=== PATIENT | male | born 1970 | race Caucasian/White ===

== ENCOUNTER 2017-11-17 16:27 | Emergency (ER) | payer OTHER ==
[~2017-11-17] VITALS: Ht 188 cm; Wt 146.0 kg
[~2017-11-17 16:27] MED LIST: GABA-1218 PO; HYDR10TA PO; IBUP-1428 PO; LISI-461 PO; OMEP20CA59 PO
[2017-11-17 16:32] VITALS: TEMP 37.1; Ht 188 cm; Wt 146.0 kg
[2017-11-17] MEDS ORDERED: ZOLP10TA PO (17:05)
[2017-11-17] MEDS ORDERED: HYDR-5806 PO (17:05)
[2017-11-17] MEDS ORDERED: KETOROLAC TROMETHAMINE 30 MG/ML VIAL IV STA (17:24)
[2017-11-17] MEDS ORDERED: ACETAMINOPHEN 500 MG TAB PO STA (17:24)
[2017-11-17] MEDS ORDERED: DEXAMETHASONE **PF** INJ 10 MG/ML VIAL IM ONE (17:30)
--- NOTE | 2017-11-17 17:32 | EMERGENCY ROOM VISIT NOTE ---
History Report prepared by Ana: Car Peña Under the Supervision of: Dr. Hima Degroot M.D. First contact with patient: 16:47 Chief Complaint: NEURO SYMPTOMS Stated Complaint: NUMBNESS IN LEGS WHEN STANDING,HEADACHES Nursing Triage Summary: Pt reports hx back problems seen at [facility]. Yesterday he fell twice, his legs just given out on him and he has no feeling in both legs. Today he fell 2 more times today. Left leg feels like it's asleep x 1 month, but if you touch it it feels like you are touching nerves. Right side he looses feeling in it and right lower back feels like he was hit with a baseball back. History of Present Illness The patient is a 47 year old white male with history of hypertension who presents to the Emergency Room with complaints of worsening numbness in his bilateral lower extremities that he has been experiencing since 09/01/2017, 1.5 months prior to arrival. The patient states that he has had numbness down the left leg since 09/01, which has worsened to numbness in the right leg over the past couple of days. He notes that when he is standing the right leg will go completely weak and cause him to fall to the ground. He has fallen 5 times in the last three days due to the right leg weakening. The patient also complains of lower back pain, which is mostly chronic in nature. He had a lower back x- ray three weeks ago which showed spinal stenosis and bulging disc. He denies any history of unexplained weight loss or cancer. He is on Vicodin daily for his chronic back pain. Source of History: patient Onset: 1.5 months [employer]ICE WORK[employer] Position: leg (bilateral) Quality: numbness Timing: worsening Review of Systems See HPI for pertinent positives and negatives. A total of ten systems were reviewed and were otherwise negative. Past Medical & Surgical Medical Problems: (1) Hypertension Hypertension Family History Cancer Diabetes mellitus Heart disease Hypertension Kidney disease Kidney stones Social History Smoking Status: Never Smoker Alcohol Use: none Drug Use: none Marital Status: Occupation Status: employed Current/Historical Medications Scheduled Lisinopril (Zestril), 10 MG PO BID Methylprednisolone (Medrol Dosepak), 1 PKT PO DAILY Zolpidem Tartrate (Ambien), 10 MG PO HS Scheduled PRN Hydrocodone-Acetaminophen (Hydrocodone Bitartrate/AC 10-325 mg), 1 TAB PO QID PRN for Pain Ibuprofen (Motrin), 800 MG PO Q8 PRN for Pain Allergies Coded Allergies: No Known Allergies (Unverified , 03/08/12) Physical Exam Vital Signs Date Time Temp Pulse Resp B/P (MAP) Pulse Ox O2 Delivery O2 Flow Rate FiO2 11/17/17 18:27 80 18 128/89 94 Room Air 11/17/17 16:58 93 11/17/17 16:32 37.1 94 16 149/93 96 Room Air Physical Exam GENERAL: Awake, alert, well-appearing, NAD HENT: Normocephalic, atraumatic. EYES: Normal conjunctiva. Sclera non-icteric. NECK: Supple. No nuchal rigidity. FROM. RESPIRATORY: CTAB, no rhonchi, wheezing, crackles CARDIAC: RRR, no MRG ABDOMEN: Soft, NTND, BS+ MSK: No chest wall TTP, no LE edema NEURO: GCS 15, patient has 5/5 strength in hip flexion/extension, knee flexion/ extension, dorsa/plantar flexion/extension bilaterally. No clonus or saddle anesthesia. Positive straight leg raise bilaterally. CN 2-12 intact, moves all 4s on command SKIN: No rash or jaundice noted. Medical Decision & Procedures ER Provider Diagnostic Interpretation: Radiology results as stated below per my review and radiologist interpretation: CT SCAN OF THE LUMBAR SPINE WITHOUT IV CONTRAST CLINICAL HISTORY: Lower extremity numbness while standing. COMPARISON STUDY: No priors. TECHNIQUE: CT scan of the lumbar spine is performed from the lower thoracic spine to the sacrum. Images are reviewed in the axial, sagittal, and coronal planes. IV contrast was not administered for this examination. A dose lowering technique was utilized adhering to the principles of ALARA. CT DOSE: 2409.29 mGy.cm FINDINGS: The skeletal structures are well mineralized. There is no evidence of fracture or malalignment involving the lumbar spine. Vertebral body height and alignment are maintained. The transverse and spinous processes are intact. There is no evidence of spondylolysis. No lytic or blastic lesion is seen. Small anterior osteophytes are seen throughout. The intervertebral disc spaces are well-maintained. There is no CT evidence of large disc herniation. Small disc bulges are noted at L4-L5 and L5-S1. There is no CT evidence of significant neural foraminal stenosis throughout the lumbar spine. The visualized sacrum and bony pelvis appear intact. The paraspinous soft tissues are within normal limits. The partially imaged retroperitoneal structures are grossly unremarkable. IMPRESSION: 1. No acute bony abnormalities seen involving the lumbar spine. 2. There is no CT evidence of large disc herniation or high-grade central canal stenosis. Dictated: 11/17/2017 6:27 PM Transcribed: 11/17/2017 6:54 PM Yasmani Electronically signed by: Darren Cox M.D. 11/17/2017 6:56 PM Dictated Date/Time: 11/17/2017 6:27 PM Laboratory Results 11/17/17 17:40 Red Blood Count 4.92, Mean Corpuscular Volume 92.1, Mean Corpuscular Hemoglobin 32.1, Mean Corpuscular Hemoglobin Concent 34.9, Mean Platelet Volume 11.9, Neutrophils (%) (Auto) 66.4, Lymphocytes (%) (Auto) 25.3, Monocytes (%) (Auto) 6.4, Eosinophils (%) (Auto) 1.3, Basophils (%) (Auto) 0.3, Neutrophils # (Auto) 6.62, Lymphocytes # (Auto) 2.52, Monocytes # (Auto) 0.64, Eosinophils # (Auto) 0.13, Basophils # (Auto) 0.03 11/17/17 17:40 Test 11/17/17 17:40 White Blood Count 9.97 K/uL (4.8-10.8) Red Blood Count 4.92 M/uL (4.7-6.1) Hemoglobin 15.8 g/dL (14.0-18.0) Hematocrit 45.3 % (42-52) Mean Corpuscular Volume 92.1 fL (80-100) Mean Corpuscular Hemoglobin 32.1 pg (25-34) Mean Corpuscular Hemoglobin Concent 34.9 g/dl (32-36) Platelet Count 131 K/uL (130-400) Mean Platelet Volume 11.9 fL (7.4-10.4) Neutrophils (%) (Auto) 66.4 % Lymphocytes (%) (Auto) 25.3 % Monocytes (%) (Auto) 6.4 % Eosinophils (%) (Auto) 1.3 % Basophils (%) (Auto) 0.3 % Neutrophils # (Auto) 6.62 K/uL (1.4-6.5) Lymphocytes # (Auto) 2.52 K/uL (1.2-3.4) Monocytes # (Auto) 0.64 K/uL (0.11-0.59) Eosinophils # (Auto) 0.13 K/uL (0-0.5) Basophils # (Auto) 0.03 K/uL (0-0.2) RDW Standard Deviation 42.9 fL (36.4-46.3) RDW Coefficient of Variation 12.9 % (11.5-14.5) Immature Granulocyte % (Auto) 0.3 % Immature Granulocyte # (Auto) 0.03 K/uL (0.00-0.02) Prothrombin Time 10.7 SECONDS (9.0-12.0) Prothromb Time International Ratio 1.0 (0.9-1.1) Activated Partial Thromboplast Time 28.0 SECONDS (21.0-31.0) Partial Thromboplastin Ratio 1.1 Anion Gap 5.0 mmol/L (3-11) Est Creatinine Clear Calc Drug Dose 136.4 ml/min Estimated GFR () 101.0 Estimated GFR (Non- 87.1 BUN/Creatinine Ratio 12.8 (10-20) Calcium Level 9.3 mg/dl (8.5-10.1) Chemistry Specimen Hemolysis Laboratory results reviewed by me Medications Administered Medications (Trade) Dose Ordered Sig/Haley Route Start Time Stop Time Status Last Admin Dose Admin Acetaminophen (Tylenol Tab) 1,000 mg NOW STAT PO 11/17/17 17:24 11/17/17 17:29 DC 11/17/17 17:39 1,000 MG Ketorolac Tromethamine (Toradol Inj) 30 mg NOW STAT IV 11/17/17 17:24 11/17/17 17:29 DC 11/17/17 17:39 30 MG Miscellaneous Information (Nursing Verbal Med Order) 1 ea ONE ONCE N/A 11/17/17 18:00 11/17/17 18:13 DC 11/17/17 17:49 1 EA ED Course 1713: The patient was evaluated in room C8. A complete history and physical exam was performed. 1727: I discussed the case with Radiology at this time. They note that there may be some utility in a non-contrast CT scan. 1925: I checked on the patient at this time. He is in agreement with the treatment plan and would like to go home. 2000: I discussed the case with Dr. Cheung - [facility]. He will follow-up with the patient in the office. The patient will be discharged home. Medical Decision The patient is a 47 year old white male with history of hypertension who presents to the Emergency Room with complaints of worsening numbness in his bilateral lower extremities that he has been experiencing since 09/01/2017, 1.5 months prior to arrival Differential Diagnosis includes; musculoskeletal, disc herniation, fracture, aortic disease, metastatic disease, cord compression, discitis, infection, renal colic, gastrointestinal, acute exacerbation of chronic back pain, sciatica , cauda equina, as well as others were entertained. Patient was seen and evaluated at the bedside. Patient states he has been complaining some worsening low back pain along with some numbness. Patient has had several falls within the last week. Patient states he is ability to walk on this occurs. Patient states that he has had plain films was told he had with sounds like degenerative disc disease and was told he had some sort of spinal stenosis. On exam the patient is neuro intact and doesn't have any saddle anesthesia. Patient denies any urinary or fecal incontinence or retention. Patient denies any fevers, history cancer, or an excellent weight loss. Patient did have some hyperreflexia and no clonus. Given the concern for spinal stenosis given his worsening pain and difficulty with walking upon standing I did discuss obtaining an MRI with the patient. Patient states that he is unable to do this. I did discuss this with the on-call radiologist who stated we could get a CT noncontrast however this hours is not as good of a imaging study compared to the MRI. Given the patient's dislike not wanting to do an MRI even with some anxiolysis we proceeded with a CT, pain control, and blood work. CT with no acute findings. Patient blood work fairly unremarkable. Given the patient's concerning symptoms I did speak with the on-call spinal specialist Dr. Cheung. He agreed to see the patient tomorrow in clinic. I did discuss with the patient that if he has any bowel or bladder incontinence or retention or saddle anesthesia a needs to return immediately. We also discussed that he will need the MRI if there is any want operative intervention. Patient is agreeable to this plan of care and will follow-up with Dr. Cheung tomorrow. Patient was deemed suitable for outpatient follow-up and treatment at this time. Patient was given strict follow-up, discharge, and return precautions. All questions were answered. Patient was deemed suitable for outpatient follow- up at this time. Patient agreed with the plan of care and was safely discharged home. The chart was completed utilizing [employer] voice recognition software. Grammatical errors, random word insertions, pronoun errors, and incomplete sentences are an occasional consequence of this system due to software limitations, ambient noise, and hardware issues. Any formal questions or concerns about the content, text, or information contained within the body of this dictation should be directly addressed to the physician for clarification. Blood Pressure Screening Patient's blood pressure: Elevated blood pressure Blood pressure disposition: Elevated BP felt to be situational Consults Time Called: 1949 Consulting Physician: Dr. Cheung [facility] Returned Call: 2000 I discussed the case with Dr. Cheung [facility]. He will follow- up with the patient in the office. The patient will be discharged home. Impression Primary Impression: Spinal stenosis Additional Impressions: Sciatica Falls Scribe Attestation The scribe's documentation has been prepared under my direction and personally reviewed by me in its entirety. I confirm that the note above accurately reflects all work, treatment, procedures, and medical decision making performed by me. Departure Information Dispostion Home / Self-Care Prescriptions Methylprednisolone (MEDROL DOSEPAK) 4 Mg Jerry 1 PKT PO DAILY, #1 PKT Prov: Hima Degroot M.D. 11/17/17 Referrals No Doctor, Assigned (PCP) Musa Cheung D.O. Patient Instructions ED Sciatica, My [facility] Additional Instructions Please return to the emergency department if you have worsening or recurrent symptoms not amenable to at-home treatment. Please call for a follow-up appointment with her primary care physician. Please take your medications as prescribed. If you have other concerns and/or complaints please feel free to also call your primary care physician's office or return the ED for further evaluation, management, and treatment. You may take 600 mg Ibuprofen every 6 hours as needed for pain with food for no more than 2 consecutive days. You may take tylenol 1000 mg every 6 hours as needed for pain. You may take motrin and tylenol separately or at the same time. Take your medications as prescribed. Dr. Cheung will see her tomorrow in clinic. Please call ahead of time. Our shelter case manager will also call tomorrow morning. If you do develop any groin numbness, bowel or bladder incontinence or retention or focal weakness please return for further evaluation. Please take your steroids preferably in the morning and with food. You have been examined and treated today on an emergency basis only. This is not a substitute for, or an effort to provide, complete comprehensive medical care. It is impossible to recognize and treat all injuries or illnesses in a single emergency department visit. It is therefore important that you follow up closely with [facility], your PCP, and/or your specialist(s). Call as soon as possible for an appointment. Thank you for your time and consideration. I look forward to speaking with you again soon. Please don't hesitate to call us if you have any questions. Problem Qualifiers Primary Impression: Spinal stenosis Spinal region: lumbar Neurogenic claudication status: unspecified Qualified Codes: M48.061 - Spinal stenosis, lumbar region without neurogenic claudication Additional Impressions: Sciatica Laterality: bilateral Qualified Codes: M54.31 - Sciatica, right side; M54.32 - Sciatica, left side Falls Encounter type: subsequent encounter Qualified Codes: W19.XXXD - Unspecified fall, subsequent encounter
[2017-11-17 17:45] LABS: BASO % 0.3 %; BASO ABS # 0.03 K/uL (0-0.2); EOS % 1.3 %; EOS ABS # 0.13 K/uL (0-0.5); HEMATOCRIT 45.3 % (42-52); HEMOGLOBIN 15.8 g/dL (14.0-18.0); IG# 0.03 K/uL (0.00-0.02); LYMPH % 25.3 %; LYMPH ABS # 2.52 K/uL (1.2-3.4); MEAN CELL VOLUME 92.1 fL (80-100); MEAN CORPUSCULAR HEMOGLOBIN 32.1 pg (25-34); MEAN CORPUSCULAR HGB CONC 34.9 g/dl (32-36); MEAN PLATELET VOLUME 11.9 fL (7.4-10.4); MONO % 6.4 %; MONO ABS # 0.64 K/uL (0.11-0.59); NEUT % 66.4 %; NEUT ABS # 6.62 K/uL (1.4-6.5); PLATELET COUNT 131 K/uL (130-400); RED CELL DISTRIBUTION WIDTH CV 12.9 % (11.5-14.5); RED CELL DISTRIBUTION WIDTH SD 42.9 fL (36.4-46.3); WHITE BLOOD COUNT 9.97 K/uL (4.8-10.8)
[2017-11-17] MEDS ORDERED: NURSING VERBAL MED ORDER ONE (18:00)
[2017-11-17 18:02] LABS: CALCIUM 9.3 mg/dl (8.5-10.1); CREATININE 1.02 mg/dl (0.60-1.40); POTASSIUM 4.2 mmol/L (3.5-5.1)
--- NOTE | 2017-11-17 18:54 | DIAGNOSTIC IMAGING REPORT ---
CT SCAN OF THE LUMBAR SPINE WITHOUT IV CONTRAST CLINICAL HISTORY: Lower extremity numbness while standing. COMPARISON STUDY: No priors. TECHNIQUE: CT scan of the lumbar spine is performed from the lower thoracic spine to the sacrum. Images are reviewed in the axial, sagittal, and coronal planes. IV contrast was not administered for this examination. A dose lowering technique was utilized adhering to the principles of ALARA. CT DOSE: 2409.29 mGy.cm FINDINGS: The skeletal structures are well mineralized. There is no evidence of fracture or malalignment involving the lumbar spine. Vertebral body height and alignment are maintained. The transverse and spinous processes are intact. There is no evidence of spondylolysis. No lytic or blastic lesion is seen. Small anterior osteophytes are seen throughout. The intervertebral disc spaces are well-maintained. There is no CT evidence of large disc herniation. Small disc bulges are noted at L4-L5 and L5-S1. There is no CT evidence of significant neural foraminal stenosis throughout the lumbar spine. The visualized sacrum and bony pelvis appear intact. The paraspinous soft tissues are within normal limits. The partially imaged retroperitoneal structures are grossly unremarkable. IMPRESSION: 1. No acute bony abnormalities seen involving the lumbar spine. 2. There is no CT evidence of large disc herniation or high-grade central canal stenosis. Dictated: 11/17/2017 6:27 PM Transcribed: 11/17/2017 6:54 PM Yasmani Electronically signed by: Darren Cox M.D. 11/17/2017 6:56 PM Dictated Date/Time: 11/17/2017 6:27 PM
[2017-11-17] MEDS ORDERED: METH4PAK PO (20:05)
[2017-11-17 20:12] VITALS: BP 142/86; PULSE 80; O2SAT 93
== END 2017-11-17 20:21 | disposition home or self-care (01) ==
LOC: C.EDB 16:30 → C.EDC 20:21
DX: M51.16 Intervertebral disc disorders with radiculopathy, lumbar region (principal); M48.061 Spinal stenosis, lumbar region without neurogenic claudication; R29.6 Repeated falls; I10 Essential (primary) hypertension

== ENCOUNTER 2017-12-31 07:20 | Day surgery (SDC) | payer OTHER ==
[~2017-12-31] VITALS: Ht 690.9 cm; Wt 145.5 kg
[2017-12-31] VITALS (8 sets, daily range): BP systolic 110–129; BP diastolic 60–76; PULSE 73–84; TEMP 36.3–37.2; O2SAT 95–98; Ht 690.9 cm; Wt 145.5 kg
[~2017-12-31 07:20] MED LIST changes: -GABA-1218 PO; +HYDR-4383 PO; -HYDR10TA PO; -OMEP20CA59 PO; +PRLSR20 PO; +ZOLP10TA PO
--- NOTE | 2017-12-31 09:49 | DIAGNOSTIC IMAGING REPORT ---
CERVICAL, THORACIC, AND LUMBAR MYELOGRAM CLINICAL HISTORY: Myelopathy. Lower extremity numbness. Neck pain and arm numbness. COMPARISON STUDY: CT scan dated 11/17/2017 FINDINGS: The risks of the procedure were explained to the patient and informed consent was obtained. The patient prepped and draped in sterile fashion. The skin was anesthetized 1% lidocaine. Under fluoroscopic guidance, a lumbar puncture was performed with a 22-gauge spinal needle at the L3-4 level. 12 cc of Isovue-M 300 was instilled into the thecal sac. The contrast was run up into the cervical region. Within the lumbar spine, there is an extra dural defect on the left at the L2-3 level. Within the cervical spine, there is a right-sided extradural defect at the C6-7 level. The patient was sent to the CT suite for further evaluation. There were no immediate complications. IMPRESSION: 1. Successful myelogram. No immediate complications 2. Left-sided extradural defect at the L2-3 level 3. Right-sided extradural defect at the C6-[address] scan of the cervical, thoracic, and lumbar spine is pending Electronically signed by: Frederick Ness M.D. 12/31/2017 9:48 AM Dictated Date/Time: 12/31/2017 9:43 AM
--- NOTE | 2017-12-31 10:24 | Discharge Instructions ---
Discharge Instructions Procedure Procedure Date: Dec 31, 2017. Reason for visit: Cervical Pain, Lumbar Pain, Myelopathy. Discharge Discharge Date: Dec 31, 2017. Discharge Diagnosis: s/p lumbar myelogram Instructions Activity Recommendations: 1 Day-May resume regular activity, 48 Hours of decreased exertion Return to School/Work: no limitations Recommended Home Diet: No Limitations Provider Instructions: ACTIVITY RECOMMENDATIONS: * Rest today. * Resume regular activity in one day. MEDICATIONS: * May take Tylenol or Ibuprofen as needed for pain. DIET: * Resume previous diet. SPECIAL CARE INSTRUCTIONS: Call your doctor if: * Temperature above 101 degrees F. * Pain not relieved by pain medicine ordered. * Increased drainage or redness from incision. * Notify your doctor with any questions or concerns. Call your doctor or go to the nearest Emergency Department if you experience: * Increased chest pain or shortness of breath. FOLLOW UP VISIT: Follow-up with Referring Physician as scheduled. Allergies Coded Allergies: No Known Allergies (Unverified , 12/31/17) [facility] Recommendations: Call your doctor if: * Temperature above 101 degrees * Pain not relieved by pain medicine ordered * There is increased drainage or redness from any incision * You have any unanswered questions or concerns. Your Doctors Instructions noted above were prepared by provider Yoni Mahoney. Patient Signature Section: Patient Instructions Signature Page Isaiah Boyle Patient (or Guardian) Signature/Date: I have read and understand the instructions given to me by my caregivers. Caregiver/RN/Doctor Signature/Date: The above-named patient and/or guardian has received patient instructions on this date. + Original Patient Signature Page (only) stays with chart. Please make copy for patient.
--- NOTE | 2017-12-31 10:29 | DIAGNOSTIC IMAGING REPORT ---
POST MYELOGRAM CT SCAN OF THE CERVICAL SPINE CT DOSE: CLINICAL HISTORY: Arm numbness. Possible myelopathy. TECHNIQUE: Following a myelogram, helical images were acquired through the cervical spine. Sagittal and coronal reformatted images were acquired. A dose lowering technique was utilized adhering to the principles of ALARA. COMPARISON STUDY: None. FINDINGS: There are multilevel spondylitic changes. There is a slight reversal of the normal cervical lordosis. C2-3 level: There is no evidence for disc bulge or focal herniation. There is no spinal or foraminal stenosis. C3-4 level: There is a mild circumferential disc bulge. There is mild spinal stenosis. There is mild left-sided foraminal narrowing. C4-5 level: There is a central disc osteophyte complex. There is moderate spinal stenosis. There is no significant foraminal narrowing. C5-6 level: There is a moderate right paracentral disc protrusion. There is effacement of the anterior thecal sac with spinal canal narrowing and mild cord deformity. C6-7 level: There is a tiny central disc protrusion. There is slight effacement of the anterior thecal sac. There is no significant foraminal narrowing. IMPRESSION: 1. Moderately advanced multilevel spondylitic changes 2. Disc bulge and mild spinal stenosis at the C3-4 level. 3. Disc osteophyte complex and moderate spinal stenosis the C4-5 level. 4. Moderate right paracentral disc protrusion at the C5-6 level with effacement of the anterior thecal sac spinal canal narrowing and mild cord deformity. 5. Tiny central disc protrusion at C6-7 level. Electronically signed by: Frederick Ness M.D. 12/31/2017 10:28 AM Dictated Date/Time: 12/31/2017 10:23 AM
--- NOTE | 2017-12-31 10:37 | DIAGNOSTIC IMAGING REPORT ---
POST MYELOGRAM CT SCAN OF THE LUMBAR SPINE CT DOSE: 2824.36 mGy.cm CLINICAL HISTORY: Left leg pain. Radiculopathy. TECHNIQUE: Following a diagnostic myelogram, helical images were acquired in the transverse plane. Sagittal and coronal reformatted images were acquired. A dose lowering technique was utilized adhering to the principles of ALARA. COMPARISON STUDY: None. FINDINGS: L1-2 level: There is a mild circumferential disc bulge. There is no significant spinal or foraminal stenosis. L2-3 level: There is a mild circumferential disc bulge. There is no significant spinal or foraminal stenosis. There is equivocal slight edema/enlargement of the left L3 nerve root L3-4 level: There is a mild circumferential disc bulge present. There is no significant spinal or foraminal stenosis L4-5 level: There is a mild circumferential disc bulge. There is asymmetric epidural fat indenting the right posterior lateral aspect of the thecal sac resulting in mild thecal sac narrowing. There is a mild circumferential disc bulge. No disc herniations are visualized. L5-S1 level: There is no evidence of disc bulge or focal herniation. There is no evidence of spinal or foraminal stenosis. IMPRESSION: 1. Multilevel spondylitic changes with minor multilevel disc bulges 2. No evidence of significant spinal or foraminal stenosis. No focal herniations identified. 3. Asymmetric right posterior lateral epidural fat at the L4-5 and L5 level. There is mild secondary deformity of the thecal sac. 4. Equivocal slight edema/enlargement of the left L3 nerve root Electronically signed by: Frederick Ness M.D. 12/31/2017 10:36 AM Dictated Date/Time: 12/31/2017 10:28 AM
--- NOTE | 2017-12-31 10:40 | DIAGNOSTIC IMAGING REPORT ---
POST MYELOGRAM CT SCAN OF THE THORACIC SPINE CT DOSE: CLINICAL HISTORY: Back pain. Myelopathy. TECHNIQUE: Following a diagnostic mammogram, helical images were acquired in the transverse plane. Sagittal and coronal reformatted images were acquired. A dose lowering technique was utilized adhering to the principles of ALARA. COMPARISON STUDY: None. FINDINGS: There is no evidence of thoracic cord enlargement. No disc herniations are visualized. There is no spinal stenosis. Spinal cord terminates in normal fashion. No fractures are visualized. No destructive lesions are visualized. No paraspinal masses are evident. IMPRESSION: Unremarkable CT myelogram of the thoracic spine Electronically signed by: Frederick Ness M.D. 12/31/2017 10:39 AM Dictated Date/Time: 12/31/2017 10:36 AM
== END 2017-12-31 12:31 | disposition home or self-care (01) ==
LOC: C.ACU 07:20
PROVIDERS: ATTEND Orthopaedic Surgery Orthopaedic Surgery of the Spine
DX: M48.02 Spinal stenosis, cervical region (principal); M48.061 Spinal stenosis, lumbar region without neurogenic claudication; G95.9 Disease of spinal cord, unspecified

== ENCOUNTER → 2018-01-18 | Outpatient (CLI) | payer OTHER ==
[~2018-01-18] MED LIST changes: +RXC5 PO
--- NOTE | 2018-01-18 18:13 | DIAGNOSTIC IMAGING REPORT ---
CHEST 2 VIEWS ROUTINE CLINICAL HISTORY: Preoperative chest COMPARISON STUDY: No previous studies for comparison. FINDINGS: The cardiac and mediastinal contours are normal. There is no evidence of focal pulmonary consolidation. There is no evidence of failure. No pleural effusions are visualized.[ Surgical clips project over the base of the left neck. IMPRESSION: No active disease in the chest. Electronically signed by: Frederick Ness M.D. 01/18/2018 6:12 PM Dictated Date/Time: 01/18/2018 6:11 PM
[2018-01-18 18:23] LABS: BASO % 0.6 %; BASO ABS # 0.05 K/uL (0-0.2); EOS % 1.7 %; EOS ABS # 0.14 K/uL (0-0.5); HEMATOCRIT 42.2 % (42-52); HEMOGLOBIN 15.1 g/dL (14.0-18.0); IG# 0.02 K/uL (0.00-0.02); LYMPH % 25.2 %; LYMPH ABS # 2.03 K/uL (1.2-3.4); MEAN CELL VOLUME 90.6 fL (80-100); MEAN CORPUSCULAR HEMOGLOBIN 32.4 pg (25-34); MEAN CORPUSCULAR HGB CONC 35.8 g/dl (32-36); MEAN PLATELET VOLUME 12.2 fL (7.4-10.4); MONO % 9.2 %; MONO ABS # 0.74 K/uL (0.11-0.59); NEUT % 63.1 %; NEUT ABS # 5.06 K/uL (1.4-6.5); PLATELET COUNT 136 K/uL (130-400); RED CELL DISTRIBUTION WIDTH CV 12.5 % (11.5-14.5); RED CELL DISTRIBUTION WIDTH SD 40.9 fL (36.4-46.3); WHITE BLOOD COUNT 8.04 K/uL (4.8-10.8)
[2018-01-18 18:40] LABS: BLOOD UREA NITROGEN 13 mg/dl (7-18); CALCIUM 9.3 mg/dl (8.5-10.1); CARBON DIOXIDE 24 mmol/L (21-32); CREATININE 0.99 mg/dl (0.60-1.40); GLUCOSE 85 mg/dl (70-99); SODIUM 137 mmol/L (136-145)
== END | disposition home or self-care (01) ==
LOC: C.LAB 16:58
PROVIDERS: ATTEND Orthopaedic Surgery Orthopaedic Surgery of the Spine
DX: M48.02 Spinal stenosis, cervical region (principal)

== ENCOUNTER 2018-01-20 05:50 | Inpatient (IN) | payer OTHER ==
[2018-01-19 14:12] VITALS: Ht 188 cm; Wt 145.4 kg
[~2018-01-20] VITALS: Ht 188 cm; Wt 145.4 kg
[2018-01-20] VITALS (16 sets, daily range): BP systolic 121–167; BP diastolic 70–95; PULSE 78–101; TEMP 36.4–37; O2SAT 95–99
[~2018-01-20 05:50] MED LIST changes: -RXC5 PO
[2018-01-20] MEDS ORDERED: GABAPENTIN 900 MG PO SCH (06:00)
[2018-01-20] MEDS ORDERED: CeleBREX 200 MG CAP PO SCH (06:00)
[2018-01-20] MEDS ORDERED: LACTATED RINGER'S 1000ML 1,000 ML IV SCH (06:00)
[2018-01-20] MEDS ORDERED: CEFAZOLIN 3000MG IV PUSH 22.5 ML IV SCH (06:00)
[2018-01-20] MEDS ORDERED: ACETAMINOPHEN 500 MG TAB PO SCH (06:00)
[2018-01-20] MEDS ORDERED: ONDANSETRON INJ 2 MG/ML 2 ML VIAL IV PRN ×2 (06:30→10:15)
[2018-01-20] MEDS ORDERED: ATROPINE SULFATE 0.1 MG/ML 5ML SYR IV PRN (06:30)
[2018-01-20] MEDS ORDERED: PHENYLEPHRINE 100MCG/ML 5ML SYR IV PRN (06:30)
[2018-01-20] MEDS ORDERED: FENTANYL CITRATE INJ 50 MCG/1 ML 2 ML VIAL IV PRN (06:30)
[2018-01-20] MEDS ORDERED: HYDROmorphone INJ 1 MG/ML SYR IV PRN (06:30)
[2018-01-20] MEDS ORDERED: PROMETHAZINE HCL INJ 12.5 MG in SODIUM CHLORIDE 0.9% 50ML 50 ML IV PRN (06:30)
[2018-01-20] MEDS ORDERED: EpHEDrine SULFATE INJ 50 MG/ML AMP IV PRN (06:30)
[2018-01-20] MEDS ORDERED: MIDAZOLAM HCL 1 MG/ML 2ML VIAL ONE (06:49)
[2018-01-20] MEDS ORDERED: FENTANYL CITRATE INJ 50 MCG/1 ML 2 ML VIAL ONE ×4 (06:49→10:07)
[2018-01-20] MEDS ORDERED: BACITRACIN 50000 UNIT VIAL ONE (07:02)
--- NOTE | 2018-01-20 07:35 | History and Physical ---
History & Physical Date Jan 20, 2018. Chief Complaint Neck and arm pain History of Present Illness The patient is a 47 year old male with complaints of neck and arm pain Past Medical/Surgical History Medical Problems: (1) Hypertension Additional History Hepatic Disease: No Endocrine Disorder: No Kidney Disease: No Hypertension: Yes Heart Disease: No Bleeding Tendencies: No Infectious Diseases: No Allergies Coded Allergies: No Known Allergies (Unverified , 01/20/18) Home Medications Scheduled Lisinopril (Zestril), 10 MG PO BID Zolpidem Tartrate (Ambien), 10 MG PO HS Scheduled PRN Hydrocodone/Acetaminophen ([place] 10/325 Tab), 1 TABS PO QID PRN for Pain Ibuprofen (Motrin), 800 MG PO Q8 PRN for Pain Omeprazole (Prilosec), 20 MG PO DAILY PRN for Indigestion Physical Examination Skin: warm/dry, no rash Eyes: normal inspection, EOMI, sclerae normal ENT: normal ENT inspection, pharynx normal Head: normocephalic, atraumatic Neck: supple, no adenopathy, trachea midline Respiratory/Chest: lungs clear, normal breath sounds, no respiratory distress Cardiovascular: regular rate, rhythm, no edema, no murmur Abdomen / GI: normal bowel sounds, non tender Back: normal inspection Extremities: normal inspection, normal range of motion Neurologic/Psych: no motor/sensory deficits, alert, normal reflexes, oriented x 3 Diagnosis Severe cervical spinal stenosis Plan of Treatment C5 corpectomy
--- NOTE | 2018-01-20 07:35 | History & Physical Bridge Note ---
H&P Re-Evaluation Bridge Note: I have examined the patient, reviewed the History & Physical and in the interval since the performance of the History & Physical I have noted the following changes of clinical significance: No changes noted
[2018-01-20] MEDS ORDERED: HYDROmorphone INJ 2 MG/ML SYR/VIAL ONE ×2 (08:06→10:07)
[2018-01-20] MEDS ORDERED: SUCCINYLCHOLINE CHLORIDE 20 MG/ML 10 ML VIAL IV ONE (08:35)
[2018-01-20] MEDS ORDERED: ONDANSETRON INJ 2 MG/ML 2 ML VIAL ONE ×2 (08:35→10:10)
[2018-01-20] MEDS ORDERED: ROCURONIUM BROMIDE 10 MG/ML 5 ML VIAL IV ONE (08:35)
[2018-01-20] MEDS ORDERED: LIDOCAINE HCL 2% 2 ML VIAL (20MG/ML) ONE (08:35)
[2018-01-20] MEDS ORDERED: PROPOFOL IV EMULSION 10 MG/ML 20 ML VIAL IV ONE (08:35)
[2018-01-20] MEDS ORDERED: DEXAMETHASONE SOD INJ 4 MG/ML VIAL ONE (08:35)
[2018-01-20] MEDS ORDERED: FLOSEAL HEMOSTATIC MATRIX 5ML TOP ONE (09:58)
[2018-01-20] MEDS ORDERED: GLYCOPYRROLATE INJ 0.2 MG/ML VIAL ONE (10:10)
[2018-01-20] MEDS ORDERED: NEOSTIGMINE METHYLSULFATE 1 MG/ML 10ML VIAL ONE (10:10)
--- NOTE | 2018-01-20 10:10 | [facility] Operative Report ---
Operative Report Operative Date Jan 20, 2018. Pre-Operative Diagnosis Cervical Spinal Stenosis Post-Operative Diagnosis Cervical Spinal Stenosis Procedure(s) Performed 1. Anterior cervical corpectomy C5. #2 anterior cervical arthrodesis C4-C6. #3 placement peek cage 27 mm in height C4-C6. #4 placement of local harvested morcellized autograft over the DBM in the interbody cage. #5 application of 5 complete and screws from C4-C6. Surgeon Dr. Cheung Mushroom Grower Surgeon(s) Aleyda Bird PA-C Estimated Blood Loss 80ml Findings Severe spinal stenosis Specimens none per surgeon Anesthesia Type General Description of Procedure Patient was met with preoperatively case discussed all questions addressed. After informed consent obtained patient was taken to the operative suite underwent intubation and placed in a supine position on the Liam table with head Rick polisher balance screwhead. All bony prominences were well-padded eyes inspected to ensure no external pressure placed upon the. At this point the anterior cervical spine was prepped and draped in normal sterile fashion. The assistance of fluoroscopy identified the C5 vertebral body and a transverse incision was placed along the right anterior aspect of the cervical spine overlying this region. Sharp dissection with the assistance of bipolar electrocautery was performed down to and exposing the anterior cervical spine from C4-C6. Self-retaining retractors placed. Then performed a complete discectomy of C5 4 5 out to the uncovertebral joints bilaterally followed by C5- 6. [place] distraction pins were then placed in C4 and C6 to distract across the C5 vertebral body. A complete corpectomy was then performed including removal of all posterior annular fibers longitudinal ligament and bilateral foraminotomies. Severe stenosis was identified and addressed. The endplates were then burred to subcortical bleeding bone in a 27 mm peek cage filled with locally harvested morselized In DBM bone graft tapped in position. The distraction apparatus was removed and a pino plate and screws applied with the assistance of fluoroscopy. The incision was then copiously irrigated explored to ensure there was no damage to surrounding structures or remaining bleeding 15 round CHI drain inserted in the incision closed with 2-0 Vicryl in the fascia and 4-0 Monocryl for fashion closure. Steri-Strips sterile dressing was placed. Patient awakened and taken to PACU in stable condition. Please note Meera Langford was present throughout the entire procedure involved in patient positioning complex portions of the surgery and final skin closure. I attest to the content of the Intraoperative Record and any orders documented therein. Any exceptions are noted below.
[2018-01-20] MEDS ORDERED: RACEPINEPHRINE 2.25% NEBU SOLN 0.5 ML VIAL INH PRN (10:15)
[2018-01-20] MEDS ORDERED: LORAZEPAM INJ 0.5 MG in SYRINGE 0.75 ML IV PRN (10:15)
[2018-01-20] MEDS ORDERED: NALOXONE HCL 0.4 MG/1 ML VIAL/CARP IV PRN (10:15)
[2018-01-20] MEDS ORDERED: DO NOT ADMINISTER PNEUMOCOCCAL VACCINE PRN (10:15)
[2018-01-20] MEDS ORDERED: DEXAMETHASONE INJ 8 MG in SYRINGE 0 ML IV PRN (10:15)
[2018-01-20] MEDS ORDERED: MAGNESIUM HYDROXIDE SUSP 30 ML UDC PO PRN (10:15)
[2018-01-20] MEDS ORDERED: HYDROmorphone INJ 0.5 MG/0.5 ML SYR IV PRN (10:15)
[2018-01-20] MEDS ORDERED: LORAZEPAM 0.5 MG TAB PO PRN (10:15)
[2018-01-20] MEDS ORDERED: DiphenhydrAMINE HCL 50 MG/ML VIAL IV PRN (10:15)
[2018-01-20] MEDS ORDERED: DO NOT ADMINISTER FLU VACCINE PRN (10:15)
[2018-01-20] MEDS ORDERED: ACETAMINOPHEN IV 1,000 MG in EMPTY BAG 0 ML IV PRN (10:15)
[2018-01-20] MEDS ORDERED: PANTOprazole SOD 40 MG TAB PO PRN (10:15)
[2018-01-20] MEDS ORDERED: LABETALOL HCL IV 5 MG/ML 20ML IV ONE (10:31)
--- NOTE | 2018-01-20 10:33 | DIAGNOSTIC IMAGING REPORT ---
INTRAOPERATIVE CERVICAL SPINE 3 VIEWS CLINICAL HISTORY: C5 CORPECTOMY COMPARISON STUDY: CT scan dated December 31, 2017 FINDINGS: 16 seconds of fluoroscopic time was utilized. 3 intraoperative fluoroscopic spot images are provided for interpretation. There are postsurgical changes of a C5 corpectomy. There is an anterior metallic plate with screws at the C4 and C6 level. IMPRESSION: Postsurgical changes of a C5 corpectomy. Electronically signed by: Frederick Ness M.D. 01/20/2018 10:32 AM Dictated Date/Time: 01/20/2018 10:30 AM
[2018-01-20] MEDS ORDERED: NURSING VERBAL MED ORDER ONE (11:45)
--- NOTE | 2018-01-20 11:49 | Anesthesiology Progress Note ---
Anesthesia Post Op Note Date & Time Jan 20, 2018 at 11:49 Vital Signs Pain Intensity: 0 Vital Signs Past 12 Hours Date Time Temp Pulse Resp B/P (MAP) Pulse Ox O2 Delivery O2 Flow Rate FiO2 01/20/18 11:46 166/83 01/20/18 11:43 80 17 01/20/18 11:43 81 17 98 01/20/18 11:42 153/89 01/20/18 11:41 162/92 01/20/18 11:40 162/92 01/20/18 11:38 73 14 95 01/20/18 11:38 73 14 01/20/18 11:36 162/95 01/20/18 11:33 79 21 01/20/18 11:33 79 21 96 01/20/18 11:31 160/94 01/20/18 11:28 76 16 95 01/20/18 11:28 75 16 01/20/18 11:26 167/96 01/20/18 11:23 72 15 95 01/20/18 11:23 72 15 01/20/18 11:22 72 15 01/20/18 11:22 72 15 94 01/20/18 11:21 164/94 01/20/18 11:17 73 15 95 01/20/18 11:17 73 15 01/20/18 11:16 173/95 01/20/18 11:12 72 17 96 01/20/18 11:12 72 17 01/20/18 11:11 167/94 01/20/18 11:07 75 14 01/20/18 11:07 75 14 94 01/20/18 11:06 173/85 01/20/18 11:04 36.4 75 97 167/94 (110) 97 Nasal Cannula 4 01/20/18 11:02 74 15 92 01/20/18 11:02 74 15 01/20/18 11:01 166/92 01/20/18 10:59 75 14 98 01/20/18 10:59 75 14 01/20/18 10:56 172/97 01/20/18 10:54 76 15 91 01/20/18 10:54 76 15 01/20/18 10:53 75 13 01/20/18 10:53 75 13 94 01/20/18 10:52 153/93 01/20/18 10:48 87 20 95 01/20/18 10:48 86 20 01/20/18 10:47 77 13 92 01/20/18 10:47 77 13 01/20/18 10:47 77 13 92 01/20/18 10:47 77 13 01/20/18 10:46 148/96 01/20/18 10:46 148/96 01/20/18 10:42 77 14 01/20/18 10:42 77 14 93 01/20/18 10:42 77 14 93 01/20/18 10:42 77 14 01/20/18 10:41 185/94 01/20/18 10:41 185/94 01/20/18 10:37 80 9 01/20/18 10:37 80 9 99 01/20/18 10:37 80 9 01/20/18 10:37 80 9 99 01/20/18 10:36 164/105 01/20/18 10:36 164/105 01/20/18 10:32 82 18 01/20/18 10:32 82 18 01/20/18 10:32 82 18 96 01/20/18 10:32 82 18 96 01/20/18 10:31 169/98 01/20/18 10:31 169/98 01/20/18 10:30 177/103 01/20/18 10:30 177/103 01/20/18 10:29 199/118 01/20/18 10:29 199/118 01/20/18 10:27 92 94 01/20/18 10:27 36.2 87 16 177/103 (134) 96 Oxymask 15 01/20/18 10:27 92 94 01/20/18 10:27 92 01/20/18 10:27 92 01/20/18 06:34 36.6 78 18 136/80 97 Room Air Notes Mental Status: alert / awake / arousable, participated in evaluation Pt Amnestic to Procedure: Yes Nausea / Vomiting: adequately controlled Pain: adequately controlled Airway Patency, RR, SpO2: stable & adequate BP & HR: stable & adequate Hydration State: stable & adequate Anesthetic Complications: no major complications apparent
[2018-01-20] MEDS: SODIUM CHLORIDE 0.9% 1000ML 1,000 ML IV SCH ×2 (12:46→21:27)
[2018-01-20] MEDS ORDERED: SCOPOLAMINE 1.5 MG TDSY TD SCH (13:00)
[2018-01-20] MEDS: CEFAZOLIN IV 2,000 MG in SYRINGE 0 ML IV SCH ×2 (15:30→23:57)
[2018-01-20] MEDS: DEXAMETHASONE INJ 6 MG in SYRINGE 0 ML IV SCH ×2 (15:30→23:57)
[2018-01-20] MEDS: OXYCODONE HCL IR 5 MG TAB (IMMEDIATE RELEASE) PO PRN ×3 (15:31→21:27)
[2018-01-20] MEDS: CHECK SCOPOLAMINE PATCH PLACEMENT SCH ×2 (15:31→23:57)
[2018-01-20] MEDS ORDERED: RXC5 PO (15:50)
--- NOTE | 2018-01-20 15:51 | Discharge Instructions ---
Discharge Instructions Date of Service Jan 20, 2018. Admission Reason for Admission: Cervical Spinal Stenosis Discharge Discharge Diagnosis / Problem: cervical stenosis Discharge Goals Goal(s): Improve function Activity Recommendations Activity Limitations: per Instructions/Follow-up section . Instructions / Follow-Up Instructions / Follow-Up ACTIVITY RECOMMENDATIONS: SELF CARE INSTRUCTIONS AFTER CERVICAL FUSIONS 1. No smoking. Smoking drastically decreases the chance of a solid fusion. 2. No bending, lifting more than 5 pounds, or twisting (roll like a log when turning in bed). 3. You may shower 3 days after surgery. Thoroughly dry wound. Do not soak in the tub. 4. Cervical collar: Must be worn at all times including sleeping. You may remove the brace only to bath, eat and if you are sitting in a recliner. 5. Please walk as much as you can for exercise. Gradually increase the distance that you walk as your endurance increases. SPECIAL CARE INSTRUCTIONS: VERY IMPORTANT TO READ AND REVIEW A. Do not take any anti-inflammatory medications (i.e. Indocin, Advil, Aspirin, Naprosyn, Aleve, Motrin, etc.) as these may inhibit the chance of a solid fusion. Tylenol is okay to take. B. Your surgical incision has been closed with a cosmetic suture under the skin that will dissolve in about 6 weeks. In 14 days, you can use a pair of clean scissors and cut the suture that is left outside of the skin at the ends of your incision. C. Complications are uncommon, but please contact us if you have any signs or symptoms of: 1. wound infection (fever higher than 102.5 degrees F, redness, separation of wound, drainage, or increasing pain from the incision) 2. blood clots in legs (pain, swelling, redness and warmth in legs) 3. urinary tract infection (fever higher than 102.5 degrees, burning upon urination or increased frequency of urination) 4. nerve problems (inability to walk on your toes or heels, numbness, loss of bowel or bladder control) 5. any other symptoms that concern you. D. Please call the office at if you have any concerns or questions about your operation or recovery. MANAGING PAIN AFTER SPINAL SURGERY 1. Narcotic medication is intended for short-term use and will be provided for surgical pain. Surgical pain usually lasts for a period of 4-6 weeks. Narcotic medication includes Percocet, Vicodin, Darvocet, Tylenol #3 or Lortab. 2. Longer-term pain is more appropriately treated with non-narcotic medication such as Tylenol ES. 3. Muscle spasm is not appropriately treated with narcotics. Muscle relaxers such as Soma, Flexeril or Skelaxin can be used along with Tylenol ES. 4. Remember that we all live with some "aches and pains". This is not unusual or uncommon after an injury or as we get older. 5. We will provide appropriate medication within the normal guidelines of their prescribed use. We will also be very cautious and aware of potential abuse and extended duration of patients' medication needs. 6. Please allow 2-3 days to process refills. Prescriptions will not be mailed but must be picked up at the office. FOLLOW UP VISIT: Keep your scheduled follow-up appointment. Any questions, please call the office at . Current Hospital Diet Patient's current hospital diet: Clear Liquid Diet Discharge Diet Recommended Diet: Regular Diet Procedures Procedures Performed: 1. Anterior cervical corpectomy C5. #2 anterior cervical arthrodesis C4-C6. #3 placement peek cage 27 mm in height C4-C6. #4 placement of local harvested morcellized autograft over the DBM in the interbody cage. #5 application of 5 complete and screws from C4-C6. Pending Studies Studies pending at discharge: no Medical Emergencies . Who to Call and When: Medical Emergencies: If at any time you feel your situation is an emergency, please call 911 immediately. . Non-Emergent Contact Non-Emergency issues call your: Primary Care Provider . "Provider Documentation" section prepared by Musa Cheung. .
[2018-01-20] MEDS ORDERED: COUGH DROP (SUGAR FREE) LOZ 24 LOZ/1 BOX LOZ PRN (20:15)
[2018-01-20] MEDS ORDERED: NURSING DECISION MEDICATION ORDER SCH (20:15)
[2018-01-20] MEDS ORDERED: ZOLPIDEM TARTRATE 10 MG TAB PO SCH (21:00)
[2018-01-20] MEDS: DOCUSATE SODIUM 100 MG CAP PO SCH (21:26)
[2018-01-20] MEDS: LISINOPRIL 10 MG TAB PO SCH (21:26)
[2018-01-21] VITALS (13 sets, daily range): BP systolic 104–133; BP diastolic 65–76; PULSE 69–86; TEMP 36.5–37.6; O2SAT 92–98
[2018-01-21] MEDS: DOCUSATE SODIUM 100 MG CAP PO SCH (08:15)
[2018-01-21] MEDS: DEXAMETHASONE INJ 6 MG in SYRINGE 0 ML IV SCH (08:15)
[2018-01-21] MEDS: CHECK SCOPOLAMINE PATCH PLACEMENT SCH ×2 (08:15→15:43)
[2018-01-21] MEDS: LISINOPRIL 10 MG TAB PO SCH (08:18)
[2018-01-21] MEDS: CEFAZOLIN IV 2,000 MG in SYRINGE 0 ML IV SCH (08:22)
[2018-01-21] MEDS: OXYCODONE HCL IR 5 MG TAB (IMMEDIATE RELEASE) PO PRN ×2 (08:22→15:43)
--- NOTE | 2018-01-21 11:28 | Discharge Summary ---
Orthopedic Discharge Summary Admission Date/Reason Jan 20, 2018 at 06:00 Cervical Spinal Stenosis. Discharge Date/Disposition Jan 21, 2018 Home Diagnosis Principal Diagnosis: Severe cervical spinal stenosis Admission Physical Exam As per Admitting History & Physical. Hospital Course Patient underwent anterior cervical corpectomy and fusion tolerated this well was taken to the orthopedic floor postoperatively. Postop day #1 he was swallowing well up and ambulatory arms and leg symptoms improved. He was subsequently discharged home. Discharge orders and instructions found on the chart for further review. Discharge Instructions Please refer to the electronic Patient Visit Report (Discharge Instructions) for additional information.
[2018-01-22] MEDS ORDERED: BISACODYL 10 MG SUPP PR PRN (06:00)
[2018-01-22] MEDS ORDERED: BISACODYL 5 MG TABEC PO PRN (06:00)
[2018-01-22] MEDS ORDERED: POLYETHYLENE (MIRALAX) 17 GM PACK PO SCH (09:00)
[2018-01-23] MEDS ORDERED: POLYETHYLENE (MIRALAX) 17 GM PACK PO SCH (09:00)
== END 2018-01-21 15:55 | disposition home or self-care (01) | DRG 473 ==
LOC: C.ACU 05:50 → C.3E 06:00 → ENRESERV 11:30
PROVIDERS: ADMIT Orthopaedic Surgery Orthopaedic Surgery of the Spine; ATTEND Orthopaedic Surgery Orthopaedic Surgery of the Spine
PROC: 0RG2070 Fusion of 2 or more Cervical Vertebral Joints with Autologous Tissue Substitute, Anterior Approach, Anterior Column, Open Approach (ICD-10-PCS; principal; 2018-01-20 07:45)
PROC: 0RG20A0 Fusion of 2 or more Cervical Vertebral Joints with Interbody Fusion Device, Anterior Approach, Anterior Column, Open Approach (ICD-10-PCS; principal; 2018-01-20 07:45)
PROC: 0RT30ZZ Resection of Cervical Vertebral Disc, Open Approach (ICD-10-PCS; principal; 2018-01-20 07:45)
DX: M48.02 Spinal stenosis, cervical region (principal); I10 Essential (primary) hypertension; Z79.899 Other long term (current) drug therapy